=== PATIENT | female | born 1955 | race Caucasian/White ===

== ENCOUNTER 2017-09-27 12:33 | Emergency (ER) | payer OTHER ==
[~2017-09-27] VITALS: Ht 157.5 cm; Wt 63.5 kg
[~2017-09-27 12:33] MED LIST: ANAPROX275 MG; NEURONTIN300 MG; VASOTEC20 MG
[2017-09-27] MEDS ORDERED: LIPITOR80 MG (13:04)
[2017-09-27] MEDS ORDERED: ISORDIL10 MG (13:05)
[2017-09-27] MEDS ORDERED: PROTONIX40 M1 (13:05)
[2017-09-27] MEDS ORDERED: ASA81 MG (13:05)
== END 2017-09-27 19:45 | disposition home or self-care (01) ==
LOC: ER 12:33
DX: K29.70 Gastritis, unspecified, without bleeding (principal)

== ENCOUNTER 2020-07-23 09:58 | Emergency (ER) | payer OTHER ==
[~2020-07-23] VITALS: Ht 160 cm; Wt 68.0 kg
[~2020-07-23 09:58] MED LIST changes: +ASA81 MG; +ISORDIL10 MG; +LIPITOR80 MG; +PROTONIX40 M1
[2020-07-23] MEDS ORDERED: AMBIEN10 MG PO (10:06)
[2020-07-23] MEDS ORDERED: TOPROL XL25 M1 PO (10:06)
== END 2020-07-23 13:37 | disposition home or self-care (01) ==
LOC: ER 09:58
DX: M79.602 Pain in left arm (principal); R05 Cough

== ENCOUNTER 2021-06-24 14:35 | Emergency (ER) | payer OTHER ==
[~2021-06-24] VITALS: Ht 160 cm; Wt 70.3 kg
[~2021-06-24 14:35] MED LIST changes: +AMBIEN10 MG PO; +TOPROL XL25 M1 PO
== END 2021-06-24 23:49 | disposition home or self-care (01) ==
LOC: ER 14:35
DX: J45.901 Unspecified asthma with (acute) exacerbation (principal); E11.9 Type 2 diabetes mellitus without complications; I10 Essential (primary) hypertension; Z88.8 Allergy status to other drugs, medicaments and biological substances; Z72.0 Tobacco use

== ENCOUNTER 2021-11-13 17:06 | Emergency (ER) | payer OTHER ==
[~2021-11-13] VITALS: Ht 160 cm; Wt 69.4 kg
== END 2021-11-13 20:49 | disposition home or self-care (01) ==
LOC: ER 17:06
DX: R07.89 Other chest pain (principal)

== ENCOUNTER 2023-12-08 12:24 | Inpatient (IN) | payer OTHER ==
[~2023-12-08] VITALS: Ht 160 cm; Wt 55.3 kg
[2023-12-08] MEDS ORDERED: LEVETIRACETAM500 MG PO (13:28)
[2023-12-08] MEDS ORDERED: BUPROPION HCL150 M1 PO (13:28)
[2023-12-08] MEDS ORDERED: CLOPIDOGREL BIS75 MG PO (13:28)
[2023-12-08] MEDS ORDERED: KEPPRA500 MG (13:28)
[2023-12-08] MEDS ORDERED: IPRATROPIUM BROMIDE 0.5 MG/2.5 ML AMPUL.NEB IH ONE (13:45)
[2023-12-08] MEDS ORDERED: METHYLPREDNISOLONE SOD SUCC 40 MG VIAL IV ONE (13:45)
[2023-12-08] MEDS ORDERED: LEVALBUTEROL HCL 0.63 MG/3 ML SOLUTION IH ONE (13:45)
[2023-12-08 13:58] LABS: ABG PH 7.467 (7.35-7.45); BASE EXCESS 8.2 mmol/l; BICARBONATE 33.2 mmol/l (23-25); SaO2 92.1 %; Tco2 34.7 mmol/l
[2023-12-08 14:13] LABS: allen test SATISFACTORY; o2 21 %; puncture site RADIAL LEFT
[2023-12-08 14:41] LABS: HEMATOCRIT 37.7 % (36.0-45.00); HEMOGLOBIN 12.5 g/dL (12.0-15.00); MEAN CELL VOLUME 86.2 fL (80.00-100.00); MEAN CORPUSCULAR HEMOGLOBIN 28.6 pg (27.00-32.0); MEAN CORPUSCULAR HGB CONC 33.3 g/dl (32.0-36.0); PLATELET COUNT 615 K/uL (150-450); RED BLOOD COUNT 4.37 M/uL (4.00-6.00)
[2023-12-08 15:16] LABS: ALBUMIN 2.8 gm/dL (3.4-5.0); BILIRUBIN TOTAL 0.33 mg/dL (0.3-1.2); CALCIUM 9.6 mg/dL (8.5-10.1); CREATININE SERUM 1.16 mg/dL (0.55-1.02); GFR 46.74; GLOBULINA 4.8 G/DL (2.4-3.5); POTASSIUM 3.29 mEq/L (3.5-5.1); TOTAL PROTEIN 7.6 gm/dL (6.4-8.2)
[2023-12-08] MEDS ORDERED: LEVALBUTEROL HCL 1.25 MG/3 ML SOLUTION IH SCH (18:26)
[2023-12-08] MEDS ORDERED: IPRATROPIUM BROMIDE 0.5 MG/2.5 ML AMPUL.NEB IH SCH (18:27)
[2023-12-08] MEDS ORDERED: BUDESONIDE 0.5 MG/2 ML AMPUL.NEB IH SCH (18:29)
[2023-12-08] MEDS ORDERED: ENOXAPARIN SODIUM 40 MG/0.4 ML SYRINGE SUBCUTANEO SCH (18:29)
[2023-12-08] MEDS ORDERED: ACETAMINOPHEN 500 MG GEL..CAP PO PRN (18:30)
[2023-12-08] MEDS ORDERED: INSULIN LISPRO 1,000 UNIT/10 ML UNITS SUBCUTANEO PRN (18:30)
[2023-12-08] MEDS ORDERED: DEXTROSE 50 % IN WATER 0.5 G/ML DISP.SYRIN IV PRN (18:30)
[2023-12-08] MEDS ORDERED: 0.9 % SODIUM CHLORIDE 1,000 ML IV SCH (18:30)
[2023-12-08] MEDS ORDERED: AZITHROMYCIN 500 MG in DEXTROSE 5 % IN WATER 250 ML IV SCH (18:34)
[2023-12-08] MEDS ORDERED: CEFTRIAXONE SODIUM 2,000 MG in 0.9 % SODIUM CHLORIDE 100 ML IV SCH (18:34)
[2023-12-08 21:39] LABS: INR 1.04; PARTIAL THROMBOPLASTIN TIME 32.8 SECONDS (22.0-34.0); PROTHROMBIN TIME 11.3 SECONDS (9.0-11.5)
[2023-12-08 21:44] VITALS: BP 140/80
[2023-12-08 22:05] LABS: MAGNESIUM 2.5 mg/dL (1.8-2.4)
[2023-12-08 22:11] LABS: C-REACTIVE PROTEIN 9.02 MG/DL (0.00-0.29)
[2023-12-08 23:46] VITALS: BP 104/64; O2SAT 90
[2023-12-09 02:03] VITALS: BP 127/71; O2SAT 93
[2023-12-09] MEDS ORDERED: ATORVASTATIN CALCIUM 20 MG TABLET PO SCH (09:00)
[2023-12-09] MEDS ORDERED: ASPIRIN 81 MG TAB.CHEW PO SCH (09:00)
[2023-12-09] MEDS ORDERED: LevETIRAcetam 500 MG TAB. PO SCH (09:00)
[2023-12-09] MEDS ORDERED: ENALAPRIL MALEATE 10 MG TABLET PO SCH (09:00)
[2023-12-09] MEDS ORDERED: FAMOTIDINE/PF 20 MG in 0.9 % SODIUM CHLORIDE 8 ML IV PUSH SCH (09:00)
[2023-12-09 09:31] VITALS: BP 143/67; O2SAT 96
[2023-12-09] MEDS ORDERED: POTASSIUM CHLORIDE/NACL 0.9% 1,000 ML IV NR (10:54)
[2023-12-09 14:05] LABS: CALCIUM 9.2 mg/dL (8.5-10.1); CREATININE SERUM 1.02 mg/dL (0.55-1.02); GFR 54.22; POTASSIUM 3.53 mEq/L (3.5-5.1)
[2023-12-09] MEDS ORDERED: GABAPENTIN 600 MG TABLET PO SCH (17:00)
[2023-12-09] MEDS ORDERED: LACTOBACILLUS ACIDOPHILUS 1 CAP CAP PO SCH (17:00)
[2023-12-09 18:54] VITALS: BP 141/72
[2023-12-09] MEDS ORDERED: CLONAZEPAM 0.5 MG TABLET PO PRN (19:00)
[2023-12-09 20:27] LABS: URINE APPEARANCE Error; URINE BILIRRUBIN Negative (NEGATIVE); URINE BLOOD Negative; URINE COLOR Yellow; URINE GLUCOSE Negative (NEGATIVE); URINE KETONE Negative (NEGATIVE); URINE LEUKOCYTE Trace; URINE NITRATE Negative; URINE PROTEIN Trace (NEGATIVE); URINE UROBILINOGEN 0.2 E.U./dl
[2023-12-09 20:30] LABS: URINE BACTERIA 75.5 uL (0.0-1933); URINE EPITHELIAL CELLS 21.4 uL (0.0-38.8); URINE RBC 4.1 uL (0.0-20.8); URINE WBC 56.7 uL (0.0-23.2)
[2023-12-09 21:45] VITALS: BP 138/72
[2023-12-09 22:48] LABS: MYCOPLASMA PNEUMONIAE IGM NON REACTIVE (NO REACTIVE)
[2023-12-10 02:25] VITALS: BP 145/64; O2SAT 100
[2023-12-10 08:50] VITALS: BP 137/58; O2SAT 97
[2023-12-10] MEDS ORDERED: TRAMADOL HCL 50 MG TABLET PO STA (15:54)
[2023-12-10 17:19] VITALS: BP 131/57
[2023-12-10 21:16] VITALS: BP 142/62
[2023-12-11 02:26] VITALS: BP 156/60; O2SAT 95
[2023-12-11 08:09] LABS: HEMOGLOBIN 11.3 g/dL (12.0-15.00); MEAN CELL VOLUME 88.7 fL (80.00-100.00); MEAN CORPUSCULAR HEMOGLOBIN 27.7 pg (27.00-32.0); MEAN CORPUSCULAR HGB CONC 31.3 g/dl (32.0-36.0); PLATELET COUNT 528 K/uL (150-450); RED BLOOD COUNT 4.06 M/uL (4.00-6.00); RED CELL DISTRIBUTION WIDTH 14.9 % (11.5-14.5)
[2023-12-11 08:43] VITALS: BP 136/75; O2SAT 96
[2023-12-11 17:37] VITALS: BP 174/75
[2023-12-11 18:19] LABS: PH,URINE 5.5 (5.0-8.0); URINE APPEARANCE Clear; URINE BILIRRUBIN Negative (NEGATIVE); URINE BLOOD Negative; URINE COLOR Yellow; URINE GLUCOSE Negative (NEGATIVE); URINE KETONE Negative (NEGATIVE); URINE LEUKOCYTE Negative; URINE NITRATE Negative; URINE PROTEIN Trace (NEGATIVE); URINE UROBILINOGEN 0.2 E.U./dl
[2023-12-11 18:22] LABS: URINE BACTERIA 25.1 uL (0.0-1933); URINE RBC 2.2 uL (0.0-20.8); URINE WBC 7.1 uL (0.0-23.2)
[2023-12-11 18:23] LABS: URINE CAST 0.91 uL (0.0-1.40)
[2023-12-11 21:53] VITALS: BP 162/86
[2023-12-12 02:47] VITALS: BP 117/69; O2SAT 98
[2023-12-12 06:40] LABS: ALBUMIN 2.3 gm/dL (3.4-5.0); BILIRUBIN TOTAL 0.17 mg/dL (0.3-1.2); CALCIUM 8.5 mg/dL (8.5-10.1); CREATININE SERUM 0.91 mg/dL (0.55-1.02); GFR 61.85; GLOBULINA 3.1 G/DL (2.4-3.5); POTASSIUM 4.07 mEq/L (3.5-5.1); TOTAL PROTEIN 5.4 gm/dL (6.4-8.2)
[2023-12-12 06:59] LABS: C-REACTIVE PROTEIN 4.55 MG/DL (0.00-0.29)
[2023-12-12 08:05] VITALS: BP 164/82
[2023-12-12] MEDS ORDERED: TUBERCULIN,PURIF.PROT.DERIV. 10 SKIN.TEST SKIN.TEST ID ONE (13:00)
[2023-12-12 16:54] VITALS: BP 156/77
[2023-12-12] MEDS ORDERED: METHYLPREDNISOLONE SOD SUCC 40 MG VIAL IV SCH (20:39)
[2023-12-12 21:51] VITALS: BP 161/83
[2023-12-13 00:39] VITALS: BP 132/69; O2SAT 98
[2023-12-13 08:00] VITALS: BP 153/83; O2SAT 100
[2023-12-13 13:16] LABS: HEMOGLOBIN 10.4 g/dL (12.0-15.00); MEAN CORPUSCULAR HEMOGLOBIN 28.3 pg (27.00-32.0); MEAN CORPUSCULAR HGB CONC 32.5 g/dl (32.0-36.0); PLATELET COUNT 466 K/uL (150-450); RED BLOOD COUNT 3.67 M/uL (4.00-6.00)
[2023-12-13 13:35] LABS: ABG PH 7.464 (7.35-7.45)
[2023-12-13 13:36] LABS: ABG PO2 50.9 mmHg (80-100); ABG pCO2 49.6 mmHg (35-45); SaO2 88.9 %; allen test SATISFACTORY; puncture site RADIAL LEFT
[2023-12-13 13:37] LABS: BASE EXCESS 9.4 mmol/l; BICARBONATE 34.8 mmol/l (23-25); Tco2 36.3 mmol/l; o2 21 %
[2023-12-13 15:30] VITALS: BP 145/79; O2SAT 90
[2023-12-14 00:53] VITALS: BP 154/77; O2SAT 97
[2023-12-14 04:06] VITALS: BP 155/85; O2SAT 94
[2023-12-14 08:18] VITALS: BP 143/69; O2SAT 99
[2023-12-14] MEDS ORDERED: INSULIN GLARGINE,HUM.REC.ANLOG 1,000 UNITS/10 ML UNITS SUBCUTANEO SCH (09:00)
[2023-12-14] MEDS ORDERED: FAMOtidine 20 MG TABLET PO SCH (09:00)
[2023-12-14 16:55] VITALS: BP 157/80; O2SAT 97
[2023-12-14] MEDS ORDERED: VASOTEC10 MG PO (18:56)
[2023-12-14] MEDS ORDERED: FAMOTIDINE20 MG PO (18:56)
[2023-12-14] MEDS ORDERED: XOPENEX CO1.25 MG/0. IH (18:56)
[2023-12-14] MEDS ORDERED: CLONAZEPAM0.5 MG PO (18:56)
[2023-12-14] MEDS ORDERED: IPRATROPIU0.2 MG/1 M IH (18:56)
[2023-12-14] MEDS ORDERED: LIPITOR20 MG PO (18:56)
[2023-12-14] MEDS ORDERED: KEPPRA500 MG PO (18:56)
[2023-12-14] MEDS ORDERED: TRELEGY ELLIPT1 EACH IH (18:56)
[2023-12-14] MEDS ORDERED: STIOLTO RESPIMAT4 G1 IH (18:56)
[2023-12-14] MEDS ORDERED: NEURONTIN600 MG PO (18:56)
[2023-12-14] MEDS ORDERED: ADULT ASPIRIN81 MG PO (18:56)
== END 2023-12-14 20:22 | disposition home or self-care (01) | DRG 190 ==
LOC: ER 12:25 → MEDI 19:14
PROVIDERS: Emergency Medicine; General Practice; Internal Medicine Endocrinology, Diabetes & Metabolism; Internal Medicine Infectious Disease; Specialist; ADMIT Internal Medicine; ATTEND Internal Medicine
PROC: B246ZZZ Ultrasonography of Right and Left Heart (ICD-10-PCS; 2023-12-08)
PROC: 3E0F7GC Introduction of Other Therapeutic Substance into Respiratory Tract, Via Natural or Artificial Opening (ICD-10-PCS; 2023-12-08)
PROC: BB24ZZZ Computerized Tomography (CT Scan) of Bilateral Lungs (ICD-10-PCS; 2023-12-08)
PROC: 5A0945A Assistance with Respiratory Ventilation, 24-96 Consecutive Hours, High Flow/Velocity Cannula (ICD-10-PCS; principal; 2023-12-10)
DX: J44.1 Chronic obstructive pulmonary disease with (acute) exacerbation (principal); I50.31 Acute diastolic (congestive) heart failure; J67.9 Hypersensitivity pneumonitis due to unspecified organic dust; A31.9 Mycobacterial infection, unspecified; E87.1 Hypo-osmolality and hyponatremia; J90 Pleural effusion, not elsewhere classified; J43.8 Other emphysema; E87.6 Hypokalemia; I11.0 Hypertensive heart disease with heart failure; E11.65 Type 2 diabetes mellitus with hyperglycemia; F17.210 Nicotine dependence, cigarettes, uncomplicated; Z95.1 Presence of aortocoronary bypass graft; Z74.01 Bed confinement status; Z79.4 Long term (current) use of insulin